=== PATIENT | male | born 1980 ===

== ENCOUNTER 2016-10-13 07:08 | Emergency (ER) | payer BC ==
[2016-10-13 07:20] VITALS: BP 130/76
[2016-10-13] MEDS ORDERED: cefTRIAXone VIAL(*) 250 MG VIAL IM ONE (07:27)
[2016-10-13] MEDS ORDERED: Lidocaine 1% MPF* 2 ML VIAL INJ ONE (07:32)
--- NOTE | 2016-10-13 07:41 | UC ---
Complaint Male HPI - HPI Summary HPI Summary: 36 YEAR OLD MALE PRESENTS WITH COMPLAINS OF PENILE DISCHARGE. - History of Current Complaint Chief Complaint: [facility] Stated Complaint: STD TESTING Time Seen by Provider: 10/13/16 07:17 - Allergies/Home Medications Allergies/Adverse Reactions: Allergies Allergy/AdvReac Type Severity Reaction Status Date / Time No Known Allergies Allergy Verified 10/13/16 07:20 Home Medications: Home Medications Albuterol HFA INHALER* [Ventolin HFA Inhaler*] 2 puff INH Q4H PRN 10/13/16 [ History Confirmed 10/13/16] PMH/Surg Hx/FS Hx/Imm Hx - Surgical History Surgical History: Yes Surgery Procedure, Year, and Place: VASECTOMY - Social History Alcohol Use: Daily Alcohol Amount: 2 BEERS DAILY Substance Use Type: None Smoking Status (MU): Never Smoked Tobacco Review of Systems Constitutional: Negative Skin: Negative Eyes: Negative ENT: Negative Respiratory: Negative Cardiovascular: Negative Gastrointestinal: Negative Genitourinary: Other - PENILE DISCHARGE Motor: Negative Neurovascular: Negative Musculoskeletal: Negative Neurological: Negative Psychological: Negative All Other Systems Reviewed And Are Negative: Yes Physical Exam Triage Information Reviewed: Yes Vital Signs: Initial Vital Signs Temp 37.1 C 10/13/16 07:16 Pulse 76 10/13/16 07:16 Resp 16 10/13/16 07:16 BP 130/76 10/13/16 07:16 Pulse Ox 98 10/13/16 07:16 Eye Exam: Normal ENT Exam: Normal Dental Exam: Normal Neck exam: Normal Neck: Positive: 1 Respiratory Exam: Normal Cardiovascular Exam: Normal Abdominal Exam: Normal Musculoskeletal Exam: Normal Neurological Exam: Normal Psychological Exam: Normal Skin Exam: Normal Complaint Male Course/Dx - Differential Dx/Diagnosis Provider Diagnoses: PENILE DISHCHARGE. STD Discharge - Discharge Plan Condition: Stable Disposition: HOME Prescriptions: Azithromycin [Azithromycin 500 MG TAB] 1,000 mg PO DAILY #2 tab Metronidazole [Flagyl 500 MG TAB] 500 mg PO BID #14 tab Patient Education Materials: Sexually Transmitted Diseases (ED) Referrals: Preston Olmstead MD [Primary Care Provider] - If Needed
[2016-10-18 00:18] LABS: Trichomonas vaginalis SOURCE: Urine (Male Patient)
== END 2016-10-13 08:18 | disposition home or self-care (01) ==
LOC: UCEAST 07:08
DX: A64 Unspecified sexually transmitted disease (principal)
CPT/HCPCS: 81003; 87086; 87491; 87591; 87661; 96372; 99212; G0463; J0696